=== PATIENT | female | born 1955 | race Caucasian/White ===

== ENCOUNTER 2016-06-17 14:18 | Outpatient (CLI) | payer MEDICARE | END 2016-06-17 14:19 | disposition home or self-care (01) | DX: R05 Cough (principal) ==

== ENCOUNTER 2017-02-04 20:03 | Outpatient (CLI) | payer MEDICARE | END 2017-02-04 20:04 | disposition critical access hospital (66) | LOC: EMS 20:03 | PROVIDERS: ATTEND Surgery | DX: R04.2 Hemoptysis (principal) | CPT/HCPCS: A0425; A0429 ==

== ENCOUNTER 2017-02-04 20:28 | Emergency (ER) | payer MEDICARE ==
--- NOTE | 2017-02-04 21:03 | ED Physician Documentation ---
PD HPI URI - Stated complaint Stated Complaint: COUGH/FEVER - Chief complaint Chief Complaint: Fever - History obtained from History obtained from: Patient - History of Present Illness Timing - onset: How many weeks ago (3) Timing duration: Weeks (3) Timing details: Gradual onset, Still present (worse the past few days, with noted blood with coughing and sputum today.) Associated symptoms: Chills, Nasal congestion, Sore throat, Productive cough, Hemoptysis (today), Dyspnea. No: Fever, Chest pain, NVD, Bilateral edema Contributing factors: COPD / asthma. No: Sick contact, Travel, Immunocompromised Similar symptoms before: Has not had sx before Recently seen: Not recently seen Review of Systems Constitutional: reports: Chills, Myalgias, Fatigue. denies: Fever Nose: reports: Congestion Cardiac: reports: Chest pain / pressure (with coughing) Respiratory: reports: Dyspnea, Cough, Wheezing GI: reports: Nausea. denies: Abdominal Pain, Vomiting, Diarrhea, Bloody / black stool Musculoskeletal: denies: Extremity swelling Neurologic: reports: Generalized weakness. denies: Focal weakness, Numbness, Near syncope Endocrine: denies: Weight loss, Easy bruising / bleeding Immunocompromised: denies: Immunocompromised PD PAST MEDICAL HISTORY - Past Medical History Past Medical History: Yes Cardiovascular: Arrhythmia Respiratory: Asthma Neuro: Head injury Endocrine/Autoimmune: None GI: Hepatitis Musculoskeletal: Other Other Past Medical History: Broken bilat ankles, left wrist - Past Surgical History Past Surgical History: Yes Ortho: Other - Present Medications Home Medications: Ambulatory Orders Medication Instructions Recorded Confirmed Aspirin 325 mg PO 02/04/17 Azithromycin [Zithromax] 250 mg PO DAILY #6 tablet 02/04/17 Benzonatate [Tessalon] 100 mg PO TID PRN #25 capsule 02/04/17 Citalopram [CeleXA] PO DAILY 02/04/17 Dexamethasone [Decadron] 4 mg PO DAILY #5 tablet 02/04/17 Gabapentin 300 mg PO DAILY 02/04/17 02/04/17 Metoprolol Tartrate 25 mg PO 02/04/17 Multivit-Min/Folic Acid/Vit K1 1 cap PO DAILY 02/04/17 02/04/17 [Multi For Her 50 Plus Softgel] guaiFENesin/CODEINE [Robitussin AC] 10 ml PO Q6H PRN #240 ml 02/04/17 - Allergies Allergies/Adverse Reactions: Allergies Allergy/AdvReac Type Severity Reaction Status Date / Time prochlorperazine Allergy Severe Anaphylaxis Verified 02/04/17 20:42 [From Compazine] prochlorperazine edisylate * Allergy Severe Anaphylaxis Verified 02/04/17 20:42 [From Compazine] prochlorperazine maleate * Allergy Severe Anaphylaxis Verified 02/04/17 20:42 [From Compazine] amoxicillin Allergy Mild Itching Verified 02/04/17 20:42 - Living Situation Living Situation: reports: With spouse/s.o. Living Arrangement: reports: At home - Social History Does the pt smoke?: No Smoking Status: Never smoker Does the pt drink ETOH?: Yes ETOH Use: Other (had 3 drinks this evening before coming here) Does the pt have substance abuse?: No Substance Use and Type: Marijuana - Family History Family history: reports: CAD PD ED PE NORMAL - Vitals Vital signs reviewed: Yes - General General: Alert and oriented X 3, No acute distress, Well developed/nourished - HEENT HEENT: Pharynx benign - Neck Neck: Supple, no meningeal sign, No adenopathy - Cardiac Cardiac: RRR, No murmur - Respiratory Respiratory: No: Clear bilaterally (scattered wheezes; no coarse sounds) - Abdomen Abdomen: Soft, Non tender - Back Back: No CVA TTP - Derm Derm: Normal color, Warm and dry - Extremities Extremities: No deformity, No tenderness to palpate, Normal ROM s pain, No edema , No calf tenderness / cord - Neuro Neuro: Alert and oriented X 3, No motor deficit, Normal speech Results - Vitals Vitals: Vital Signs - 24 hr 02/04/17 02/04/17 02/04/17 20:34 21:30 23:13 Temperature 36.0 C L 36.3 C L Heart Rate 69 72 64 Respiratory 20 20 20 Rate Blood Pressure 135/90 H 124/64 O2 Saturation 93 96 Oxygen O2 Source Room air - Rads (name of study) chest xray Radiology: Prelim report reviewed, EMP read contemporaneously PD MEDICAL DECISION MAKING - ED course Complexity details: reviewed results, re-evaluated patient (feels better with neb treatment. ), considered differential, d/w patient Departure - Departure Disposition: 01 Home, Self Care Clinical Impression: Bronchitis, Cough with hemoptysis Condition: Stable Record reviewed to determine appropriate education?: Yes Instructions: ED Upper Resp Infec Abx Tx Follow-Up: Aviva Kim ARNP [Primary Care Provider] - Prescriptions: Dexamethasone [Decadron] 4 mg PO DAILY #5 tablet guaiFENesin/CODEINE [Robitussin AC] 10 ml PO Q6H PRN #240 ml PRN Reason: Cough Benzonatate [Tessalon] 100 mg PO TID PRN #25 capsule PRN Reason: Cough Azithromycin [Zithromax] 250 mg PO DAILY #6 tablet Comments: Drink lots of fluids. Use your albuterol inhaler at home 2 puffs 4 times a day and extra times as needed. The next 5 days use azithromycin antibiotic and Decadron steroid as directed. Use Tessalon if needed for cough. Also add codeine cough medicine when needed. Recheck if not improving over the next several days and return sooner if worse. Discharge Date/Time: 02/04/17 23:16
[2017-02-04] MEDS ORDERED: ALBUTEROL NEB 2.5 MG/3 ML INH STA (21:20)
[2017-02-04] MEDS ORDERED: BENZONATATE 100 MG CAPSULE PO STA (21:20)
[2017-02-04] MEDS ORDERED: HYDROcod/ACETAM 5/325 MG TABLET PO STA (21:20)
[2017-02-04] MEDS ORDERED: DEXAMETHASONE 10 MG/ML VIAL PO STA (21:20)
[2017-02-04] MEDS ORDERED: AZITHROMYCIN 250 MG TABLET PO STA (21:20)
[2017-02-04] MEDS ORDERED: ALBUTEROL NEB 2.5 MG/3 ML INH ONE (21:34)
[2017-02-04] MEDS ORDERED: AZITHROMYCIN 250 MG TABLET PO ONE (21:40)
[2017-02-04] MEDS ORDERED: BENZONATATE 100 MG CAPSULE PO ONE (21:40)
[2017-02-04] MEDS ORDERED: HYDROcod/ACETAM 5/325 MG TABLET ONE (21:41)
[2017-02-04] MEDS ORDERED: CHERRY SYRUP 10 ML UDC PO ONE (21:41)
[2017-02-04] MEDS ORDERED: DEXAMETHASONE 10 MG/ML VIAL ONE (21:41)
--- NOTE | 2017-02-04 22:43 | XRAY Report ---
EXAM: CHEST RADIOGRAPHY EXAM DATE: 02/04/2017 10:08 PM. CLINICAL HISTORY: Cough for 2-3 weeks. COMPARISON: None. TECHNIQUE: 2 views. FINDINGS: Lungs/Pleura: Stable calcified granuloma, right upper lobe, otherwise no focal opacities evident. No pleural effusion. No pneumothorax. Normal volumes. Mediastinum: Heart and mediastinal contours are unremarkable. Other: No compression fractures. IMPRESSION: No acute pulmonary abnormality. Stable right upper lobe calcified granuloma. [facility] Referring Provider Line: [phone] SITE ID: [id number]
[2017-02-04 23:14] VITALS: BP 124/64
== END 2017-02-04 23:16 | disposition home or self-care (01) ==
LOC: EDUNIT# → ED 20:28
DX: J40 Bronchitis, not specified as acute or chronic (principal); R04.2 Hemoptysis; K75.9 Inflammatory liver disease, unspecified
CPT/HCPCS: 71020; 94640; 99283; 99284; A9270; J7613

== ENCOUNTER 2017-09-15 13:08 | Outpatient (CLI) | payer MEDICARE | END 2017-09-15 13:09 | disposition home or self-care (01) | LOC: SC 13:08 | PROVIDERS: ATTEND Internal Medicine Pulmonary Disease | DX: G47.10 Hypersomnia, unspecified (principal); G47.8 Other sleep disorders; R06.83 Snoring | CPT/HCPCS: 99203; G0463; 99212 ==

== ENCOUNTER 2017-11-12 13:19 | Outpatient (CLI) | payer MEDICARE ==
--- NOTE | 2017-11-12 13:39 | XRAY Report ---
Procedure Date: 11/12/2017 Accession Number: [id number] / [id number] Procedure: XRS - Lumbar Spine 2 View CPT Code: FULL RESULT: EXAM: Lumbar Spine 2 View DATE: 11/12/2017 1:34 PM CLINICAL HISTORY: LOW BACK PAIN COMPARISON: MRI 01/22/2007 TECHNIQUE: 3 views. FINDINGS: Alignment: Normal. No spondylolisthesis or scoliosis. Bones: Five [id number] lumbar vertebral bodies are present. No fractures or bone lesions. Disks: Mild degenerative disc disease. Facets: Mild facet arthropathy. Sacroiliac Joints: Unremarkable. Soft Tissues: Normal. The visualized bowel gas pattern is normal. IMPRESSION: Mild degenerative changes. No evidence of interval fracture. [facility]
== END 2017-11-12 13:20 | disposition home or self-care (01) ==
LOC: DI.S 13:19
PROVIDERS: ATTEND Nurse Practitioner Family
DX: M51.36 Other intervertebral disc degeneration, lumbar region (principal); M47.896 Other spondylosis, lumbar region
CPT/HCPCS: 72100

== ENCOUNTER 2018-05-03 16:27 | Outpatient (CLI) | payer MEDICARE ==
--- NOTE | 2018-05-04 11:38 | Mammography Report ---
Reason: SCREENING MAMMO Procedure Date: 05/03/2018 Accession Number: [id number] / [id number] Procedure: [facility]E - Screening Mammo w/Collins CPT Code: FULL RESULT: EXAM: Screening Mammo w/Collins DATE: 05/03/2018 4:55 PM CLINICAL HISTORY: Screening. No reported personal or family history of breast cancer. TECHNIQUE: Bilateral CC and MLO views were obtained. COMPARISON: 10/14/2012 through 02/05/2010 FINDINGS: The breasts demonstrate scattered fibroglandular densities bilaterally. Left breast: There is a stable oval mass with partially circumscribed partially obscured margins in the subareolar breast. There are no suspicious masses, calcifications or areas of distortion. Right breast: There are no suspicious masses, calcifications or areas of distortion. IMPRESSION: Benign findings RECOMMENDATION: Routine annual screening unless otherwise clinically indicated. BI-RADS CATEGORY 2: Benign findings STANDARD QUALIFYING STATEMENTS: 1. This examination was not reviewed with the aid of Computer-Aided Detection (CAD). 2. A negative or benign imaging report should not preclude biopsy if clinically suspicious findings are present. 3. Dense breasts may obscure an underlying neoplasm. 4. This examination was reviewed with the aid of 3D breast imaging (tomosynthesis).
== END 2018-05-03 16:28 | disposition home or self-care (01) ==
LOC: DI 16:27
PROVIDERS: ATTEND Nurse Practitioner Family
DX: Z12.31 Encounter for screening mammogram for malignant neoplasm of breast (principal)
CPT/HCPCS: 77063; 77067

== ENCOUNTER 2019-05-05 10:14 | Outpatient (CLI) | payer MEDICARE ==
--- NOTE | 2019-05-09 09:35 | Mammography Report ---
Reason: SCREENING MAMMO Procedure Date: 05/05/2019 Accession Number: [id number] / [id number] Procedure: MGS - Screening Mammo Dig Bilat CPT Code: Final Report FULL RESULT: EXAM: Screening Mammo Dig Bilat DATE: 05/05/2019 10:34 AM CLINICAL HISTORY: Screening encounter. History of nulliparity and early menses. Family history of breast cancer in a sister at the age of 62. TECHNIQUE: (B) - Bilateral CC and MLO views were obtained. COMPARISON: 05/03/2018 through 02/05/2010. PARENCHYMAL PATTERN: (A) - The breast(s) demonstrate(s) scattered fibroglandular densities. FINDINGS: There are coarse typically benign calcifications. There are no suspicious masses, calcifications, or areas of distortion. IMPRESSION: Benign findings. BI-RADS category 2. RECOMMENDATION: (ANNUAL) - Recommend routine annual screening mammography. BI-RADS CATEGORY: (2) - Benign Findings. STANDARD QUALIFYING STATEMENTS: 1. This examination was reviewed with the aid of Computer-Aided Detection (CAD). 2. A negative or benign imaging report should not preclude biopsy if clinically suspicious findings are present. 3. Dense breasts may obscure an underlying neoplasm. 4. This examination was reviewed without the aid of 3D breast imaging (tomosynthesis).
== END 2019-05-05 10:15 | disposition home or self-care (01) ==
LOC: DI.S 10:14
PROVIDERS: ATTEND Registered Nurse
DX: Z12.31 Encounter for screening mammogram for malignant neoplasm of breast (principal); Z80.3 Family history of malignant neoplasm of breast
CPT/HCPCS: 77067

== ENCOUNTER 2019-11-28 13:11 | Outpatient (CLI) | payer MEDICARE ==
[2019-11-28 20:04] LABS: BASOPHILS % (AUTO) 0.7 %; EOSINOPHILS # (AUTO) 0.1 10^3/uL (0.0-0.7); EOSINOPHILS % (AUTO) 1.6 %; HGB - HEMOGLOBIN 14.4 g/dL (12.0-16.0); LYMPHOCYTES % (AUTO) 33.9 %; MEAN CORPUSCULAR HGB CONC 32.4 g/dL (32.0-36.0); MEAN CORPUSCULAR VOLUME 101.8 fL (81.0-99.0); MEAN PLATELET VOLUME 10.9 fL (7.9-10.8); MONOCYTES # (AUTO) 0.4 10^3/uL (0.0-1.0); MONOCYTES % (AUTO) 7.4 %; NEUTROPHILS # (AUTO) 3.2 10^3/uL (1.5-6.6); NEUTROPHILS % (AUTO) 56.1 %; PLT - PLATELET COUNT 220 10^3/uL (130-450); RED BLOOD COUNT 4.37 10^6/uL (4.20-5.40); RED CELL DISTRIBUTION WIDTH 12.6 % (12.0-15.0); WHITE BLOOD COUNT 5.8 x10^3/uL (4.8-10.8)
[2019-11-28 20:22] LABS: HB2 TOTAL 15.8 g/dL; HEMOGLOBIN A1C 0.66 g/dL
[2019-11-28 20:26] LABS: ALBUMIN 4.4 g/dL (3.2-5.5); ALBUMIN/GLOBULIN RATIO 1.8 (1.0-2.2); ALKALINE PHOSPHATASE 40 IU/L (42-121); ALT ALANINE AMINOTRANSFERASE 34 IU/L (10-60); AST ASPARTATE AMINOTRANSFERASE 27 IU/L (10-42); BILIRUBIN,TOTAL 0.8 mg/dL (0.2-1.0); BUN - BLOOD UREA NITROGEN 19 mg/dL (6-20); CALCIUM 9.6 mg/dL (8.5-10.3); CARBON DIOXIDE - CO2 27 mmol/L (21-32); CHLORIDE 99 mmol/L (101-111); CHOL/HDL RATIO 3.2 (<4.4); CHOLESTEROL 249 mg/dL; CREATININE 0.8 mg/dL (0.4-1.0); GLUCOSE 101 mg/dL (70-100); HDL CHOLESTEROL 79 mg/dL; LDL CHOLESTEROL,CALCULATED 139 mg/dL; LDL/HDL RATIO 1.8 (<4.4); SODIUM 135 mmol/L (135-145); TOTAL PROTEIN 6.9 g/dL (6.7-8.2); VLDL CHOLESTEROL 31 mg/dL
== END 2019-11-28 13:12 | disposition home or self-care (01) ==
LOC: LAB.S 13:11
PROVIDERS: ATTEND Registered Nurse
DX: R42 Dizziness and giddiness (principal); I10 Essential (primary) hypertension; E78.5 Hyperlipidemia, unspecified; Z78.0 Asymptomatic menopausal state
CPT/HCPCS: 36415; 80053; 80061; 83036; 83721; 84443; 85025

== ENCOUNTER 2020-12-12 14:37 | Outpatient (CLI) | payer MEDICARE ==
[2020-12-12 19:53] LABS: BASOPHILS % (AUTO) 0.5 %; EOSINOPHILS # (AUTO) 0.2 10^3/uL (0.0-0.7); EOSINOPHILS % (AUTO) 2.4 %; HCT - HEMATOCRIT 45.7 % (37.0-47.0); LYMPHOCYTES % (AUTO) 31.7 %; MEAN CORPUSCULAR HGB CONC 32.8 g/dL (32.0-36.0); MEAN CORPUSCULAR VOLUME 100.7 fL (81.0-99.0); MEAN PLATELET VOLUME 10.5 fL (7.9-10.8); MONOCYTES # (AUTO) 0.5 10^3/uL (0.0-1.0); MONOCYTES % (AUTO) 8.1 %; NEUTROPHILS # (AUTO) 3.5 10^3/uL (1.5-6.6); NEUTROPHILS % (AUTO) 56.8 %; PLT - PLATELET COUNT 215 10^3/uL (130-450); RED BLOOD COUNT 4.54 10^6/uL (4.20-5.40); RED CELL DISTRIBUTION WIDTH 12.6 % (12.0-15.0); WHITE BLOOD COUNT 6.2 x10^3/uL (4.8-10.8)
[2020-12-12 20:11] LABS: ALBUMIN 4.8 g/dL (3.2-5.5); ALBUMIN/GLOBULIN RATIO 1.8 (1.0-2.2); BILIRUBIN,TOTAL 0.7 mg/dL (0.2-1.0); CREATININE 0.8 mg/dL (0.4-1.0); POTASSIUM 4.3 mmol/L (3.5-5.0); TOTAL PROTEIN 7.5 g/dL (6.7-8.2)
== END 2020-12-12 14:38 | disposition home or self-care (01) ==
LOC: LAB.S 14:37
PROVIDERS: ATTEND Internal Medicine
DX: I10 Essential (primary) hypertension (principal)
CPT/HCPCS: 36415; 80053; 85025

== ENCOUNTER 2021-06-16 12:03 | Outpatient (CLI) | payer MEDICARE ==
[2021-06-16 18:24] LABS: BASOPHILS # (AUTO) 0.1 10^3/uL (0.0-0.1); BASOPHILS % (AUTO) 0.8 %; EOSINOPHILS # (AUTO) 0.2 10^3/uL (0.0-0.7); EOSINOPHILS % (AUTO) 2.7 %; HCT - HEMATOCRIT 45.2 % (37.0-47.0); HGB - HEMOGLOBIN 14.9 g/dL (12.0-16.0); LYMPHOCYTES % (AUTO) 27.8 %; MEAN CORPUSCULAR HEMOGLOBIN 32.3 pg (27.0-31.0); MEAN CORPUSCULAR VOLUME 97.8 fL (81.0-99.0); MEAN PLATELET VOLUME 10.4 fL (7.9-10.8); MONOCYTES # (AUTO) 0.6 10^3/uL (0.0-1.0); MONOCYTES % (AUTO) 8.5 %; NEUTROPHILS # (AUTO) 4.2 10^3/uL (1.5-6.6); NEUTROPHILS % (AUTO) 59.5 %; PLT - PLATELET COUNT 248 10^3/uL (130-450); RED BLOOD COUNT 4.62 10^6/uL (4.20-5.40); RED CELL DISTRIBUTION WIDTH 13.1 % (12.0-15.0); WHITE BLOOD COUNT 7.1 x10^3/uL (4.8-10.8)
[2021-06-16 18:43] LABS: ALBUMIN 4.6 g/dL (3.2-5.5); ALBUMIN/GLOBULIN RATIO 1.5 (1.0-2.2); ALKALINE PHOSPHATASE 45 IU/L (42-121); ALT ALANINE AMINOTRANSFERASE 26 IU/L (10-60); AST ASPARTATE AMINOTRANSFERASE 26 IU/L (10-42); BILIRUBIN,TOTAL 0.9 mg/dL (0.2-1.0); BUN - BLOOD UREA NITROGEN 14 mg/dL (6-20); CALCIUM 9.6 mg/dL (8.5-10.3); CARBON DIOXIDE - CO2 30 mmol/L (21-32); CHLORIDE 95 mmol/L (101-111); CHOL/HDL RATIO 3.5 (<4.4); CHOLESTEROL 266 mg/dL; CREATININE 0.9 mg/dL (0.4-1.0); GFR - MDRD 62 (>89); GLUCOSE 106 mg/dL (70-100); HDL CHOLESTEROL 76 mg/dL; LDL CHOLESTEROL,CALCULATED 148 mg/dL; LDL/HDL RATIO 1.9 (<4.4); POTASSIUM 3.9 mmol/L (3.5-5.0); SODIUM 133 mmol/L (135-145); TOTAL PROTEIN 7.6 g/dL (6.7-8.2); TRIGLYCERIDES 211 mg/dL; VLDL CHOLESTEROL 42 mg/dL
== END 2021-06-16 12:04 | disposition home or self-care (01) ==
LOC: LAB.S 12:03
PROVIDERS: ATTEND Internal Medicine
DX: I10 Essential (primary) hypertension (principal)
CPT/HCPCS: 36415; 80053; 80061; 83721; 85025

== ENCOUNTER 2023-04-17 10:43 | Outpatient (CLI) | payer MEDICARE ==
[2023-04-17 15:34] LABS: BASOPHILS % (AUTO) 0.5 %; EOSINOPHILS # (AUTO) 0.2 10^3/uL (0.0-0.7); EOSINOPHILS % (AUTO) 2.9 %; HCT - HEMATOCRIT 44.9 % (37.0-47.0); HGB - HEMOGLOBIN 14.5 g/dL (12.0-16.0); LYMPHOCYTES % (AUTO) 30.2 %; MEAN CORPUSCULAR HEMOGLOBIN 31.3 pg (27.0-31.0); MEAN CORPUSCULAR HGB CONC 32.3 g/dL (32.0-36.0); MEAN PLATELET VOLUME 10.6 fL (7.9-10.8); MONOCYTES # (AUTO) 0.5 10^3/uL (0.0-1.0); NEUTROPHILS # (AUTO) 3.8 10^3/uL (1.5-6.6); NEUTROPHILS % (AUTO) 57.9 %; PLT - PLATELET COUNT 255 10^3/uL (130-450); RED BLOOD COUNT 4.63 10^6/uL (4.20-5.40); RED CELL DISTRIBUTION WIDTH 13.4 % (12.0-15.0); WHITE BLOOD COUNT 6.5 x10^3/uL (4.8-10.8)
[2023-04-17 16:01] LABS: THYROID STIMULATING HORMONE 1.62 uIU/mL (0.34-5.60)
[2023-04-17 16:02] LABS: ALBUMIN 4.5 g/dL (3.2-5.5); ALBUMIN/GLOBULIN RATIO 1.7 (1.0-2.2); ALKALINE PHOSPHATASE 56 IU/L (42-121); ALT ALANINE AMINOTRANSFERASE 23 IU/L (10-60); AST ASPARTATE AMINOTRANSFERASE 21 IU/L (10-42); BILIRUBIN,TOTAL 0.5 mg/dL (0.2-1.0); BUN - BLOOD UREA NITROGEN 12 mg/dL (6-20); CALCIUM 10.1 mg/dL (8.5-10.3); CARBON DIOXIDE - CO2 30 mmol/L (21-32); CHLORIDE 101 mmol/L (101-111); CHOL/HDL RATIO 3.7 (<4.4); CHOLESTEROL 226 mg/dL; CREATININE 0.7 mg/dL (0.6-1.3); GFR - MDRD 83 (>89); GLUCOSE 99 mg/dL (74-104); HDL CHOLESTEROL 61 mg/dL; LDL CHOLESTEROL,CALCULATED 124 mg/dL; POTASSIUM 4.3 mmol/L (3.5-4.5); SODIUM 137 mmol/L (135-145); TOTAL PROTEIN 7.1 g/dL (6.4-8.9); TRIGLYCERIDES 204 mg/dL (48-352); VLDL CHOLESTEROL 41 mg/dL
== END 2023-04-17 10:44 | disposition home or self-care (01) ==
LOC: LAB.S 10:43
PROVIDERS: ATTEND Registered Nurse
DX: Z79.899 Other long term (current) drug therapy (principal); Z13.220 Encounter for screening for lipoid disorders; Z13.29 Encounter for screening for other suspected endocrine disorder; N39.0 Urinary tract infection, site not specified
CPT/HCPCS: 36415; 80053; 80061; 83721; 84443; 85025; 87086

== ENCOUNTER 2023-04-17 11:35 | Outpatient (CLI) | payer MEDICARE | END 2023-04-17 23:59 | disposition home or self-care (01) | LOC: LAB.S 11:35 | PROVIDERS: ATTEND Physician Assistant Medical | DX: N39.0 Urinary tract infection, site not specified (principal) | CPT/HCPCS: 87086 ==